=== PATIENT | male | born 1995 | race African-American/Black ===

== ENCOUNTER 2019-08-30 12:32 | Emergency (ER) | payer OTHER ==
[2019-08-30] MEDS ORDERED: IBUPROFEN 800 MG TABLET PO STA (12:47)
--- NOTE | 2019-08-30 12:49 | ED Physician Documentation ---
PD HPI LOWER EXT INJURY - Stated complaint Stated Complaint: R ANKLE INJ - Chief complaint Chief Complaint: Ext Problem - History obtained from History obtained from: Patient - History of Present Illness PD HPI LOW EXT INJURY LOCATION: Right (He fell down stairs in his [employer] just prior to arrival. Hit the right side of his face and injured his right ankle. He is able to walk and bear weight. No loss of consciousness or nausea. Headache is minor.) Review of Systems Constitutional: denies: Fever, Chills Cardiac: reports: Reviewed and negative Respiratory: reports: Reviewed and negative PD PAST MEDICAL HISTORY - Present Medications Home Medications: Ambulatory Orders Medication Instructions Recorded Confirmed Hydrocodone/Acetaminophen 1 - 2 each PO Q6H PRN #14 tablet 08/30/19 [Hydrocodon-Acetaminophen 5-325] - Allergies Allergies/Adverse Reactions: Allergies Allergy/AdvReac Type Severity Reaction Status Date / Time No Known Drug Allergies Allergy Verified 08/30/19 12:39 PD ED PE NORMAL - Vitals Vital signs reviewed: Yes - General General: Alert and oriented X 3, No acute distress - HEENT HEENT: PERRL, EOMI, Other (He is some early bruising and swelling on the right side of the face in the periorbital area. Minimal tenderness over the zygoma. No evidence of entrapment or diplopia.) - Neck Neck: Supple, no meningeal sign, No bony TTP - Back Back: No spinal TTP - Extremities Extremities: Other (Quite tender and swollen over the lateral malleolus of the right ankle full, no proximal fibular or foot tenderness.) - Neuro Neuro: Alert and oriented X 3, Normal speech Results - Vitals Vitals: Vital Signs - 24 hr 08/30/19 12:36 Temperature 37.1 C Heart Rate 111 H Respiratory 20 Rate Blood Pressure 141/98 H O2 Saturation 97 Oxygen O2 Source Room air - Rads (name of study) R ankle XR Radiology: EMP read contemporaneously (queen B frx) CT head and Face Radiology: EMP read contemporaneously (non discplaced nasal frx, not clearly acute. (Not tender there). Mucosal thickening.) Procedures - Splint (location) rle Splint applied by: Tech Type of splint: Fiberglass, Posterior Other: Patient tolerated well, No complications, Neurovascular intact, Crutches provided Departure - Departure Disposition: Home, Self Care Clinical Impression: Ankle fracture, right Qualifiers: Encounter type: initial encounter Fracture type: closed Qualified Code(s): S82.891A - Other fracture of right lower leg, initial encounter for closed fracture Facial contusion Qualifiers: Encounter type: initial encounter Qualified Code(s): S00.83XA - Contusion of other part of head, initial encounter Condition: Good Record reviewed to determine appropriate education?: Yes Instructions: ED Fx Ankle Lateral Malleolus, ED Head Injury Closed Prescriptions: Hydrocodone/Acetaminophen [Hydrocodon-Acetaminophen 5-325] 1 - 2 each PO Q6H PRN #14 tablet PRN Reason: pain Comments: Do not remove the splint, do not bear weight on the right ankle [place]. You should follow-up with them[facility], they will discuss with you whether they think surgery is appropriate or not. Either way follow their instructions. Forms: Activity restrictions
--- NOTE | 2019-08-30 13:25 | CT Report ---
Reason: head/face inj Procedure Date: 08/30/2019 Accession Number: [id number] / [id number] Procedure: CT - HEAD WO CPT Code: Final Report FULL RESULT: EXAM: CT HEAD EXAM DATE: 08/30/2019 01:05 PM. CLINICAL HISTORY: Head/face inj. fall. Head/facial injury. COMPARISON: None. TECHNIQUE: Multiaxial CT images were obtained from the foramen magnum to the vertex. Reformats: Sagittal and coronal. IV contrast: None. In accordance with CT protocol optimization, one or more of the following dose reduction techniques were utilized for this exam: automated exposure control, adjustment of mA and/or KV based on patient size, or use of iterative reconstructive technique. FINDINGS: Parenchyma: No intraparenchymal hemorrhage. No evidence of mass, midline shift, or CT findings of infarction. Riley-white differentiation is distinct. Extraaxial Spaces: Normal for age. No subdural or epidural collections identified. Ventricles: Normal in size and position. Sinuses and Orbits: Moderate opacification of multiple bilateral ethmoid air cells, left greater than right with mild soft tissue thickening within the sphenoid sinuses and the frontal sinuses. No winston fluid within the visualized sinuses. The visualized orbits and mastoids are unremarkable. Bones: No evidence of fracture or calvarial defect. Other: None. IMPRESSION: 1. No definite intracranial abnormality. 2. Bilateral paranasal sinus soft tissue thickening, greatest within the ethmoid sinuses. No fluid levels within the visualized sinuses. RADIA
--- NOTE | 2019-08-30 13:25 | CT Report ---
Reason: head/face inj Procedure Date: 08/30/2019 Accession Number: [id number] / [id number] Procedure: CT - MAXILLOFACIAL WO CPT Code: Final Report FULL RESULT: EXAM: CT MAXILLOFACIAL WITHOUT CONTRAST EXAM DATE: 08/30/2019 01:05 PM. CLINICAL HISTORY: Head/face inj. Swelling. COMPARISONS: None. TECHNIQUE: Thin-section axial images were acquired of the face without contrast. Post-processing: Coronal and sagittal reformats. Other: None. In accordance with CT protocol optimization, one or more of the following dose reduction techniques were utilized for this exam: automated exposure control, adjustment of mA and/or KV based on patient size, or use of iterative reconstructive technique. FINDINGS: Soft Tissue: No discrete collection visualized. Mild facial soft tissue swelling noted. Orbits: Symmetric and unremarkable. Bones: Nondisplaced appearing nasal fracture appears to be present. No other facial fracture identified. Temporomandibular Joints: The temporomandibular joints are symmetric and normally located. Sinuses: Mild frontal mucus/mucosal thickening, most notably on the left. Mild sphenoid and maxillary sinus mucosal thickening bilaterally. Scattered moderate opacity throughout the ethmoids and mucosal thickening. Patent ostiomeatal complex on the right and partially opacified on the left. Other: None. IMPRESSION: 1. Age-indeterminate nondisplaced appearing nasal fracture. Mild facial soft tissue swelling. Correlate with clinical assessment. No other facial fracture or TMJ dislocation identified. 2. Mild to moderate appearing paranasal sinus disease with mucosal thickening and mucus that is most prominent within the ethmoids. RADIA
--- NOTE | 2019-08-30 13:28 | XRAY Report ---
Reason: ankle inj Procedure Date: 08/30/2019 Accession Number: [id number] / [id number] Procedure: XR - Ankle 3 View RT CPT Code: Final Report FULL RESULT: EXAM: RIGHT ANKLE RADIOGRAPHY EXAM DATE: 08/30/2019 12:59 PM. CLINICAL HISTORY: Right ankle injury. Fell down stairs this morning. COMPARISON: None. TECHNIQUE: 3 views. FINDINGS: Bones: Oblique distal fibula fracture extending to the level of the tibial plafond, with minimal dorsolateral displacement of the distal fracture fragment. Joints: Normal alignment. The ankle mortise is symmetric. A small tibiotalar joint effusion is present. Soft Tissues: Anterolateral soft tissue swelling. IMPRESSION: Minimally displaced Root type B distal fibula fracture. RADIA
[2019-08-30 13:44] VITALS: BP 143/86
== END 2019-08-30 13:45 | disposition home or self-care (01) ==
LOC: ED 12:32
DX: S82.831A Other fracture of upper and lower end of right fibula, initial encounter for closed fracture (principal); S00.11XA Contusion of right eyelid and periocular area, initial encounter; W10.9XXA Fall (on) (from) unspecified stairs and steps, initial encounter; Y92.133 Barracks on military base as the place of occurrence of the external cause
CPT/HCPCS: 29515; 70450; 70486; 73610; 99284; A9270

== ENCOUNTER 2019-09-07 06:47 | Day surgery (SDC) | payer OTHER ==
[~2019-09-07 06:47] MED LIST: CEFAZOLIN SODIUM IN 0.9 % NACL 2 GM/100 ML BAG IV ONE
[2019-09-07] MEDS ORDERED: LACTATED RINGERS 1,000 ML IV ONE (07:04)
[2019-09-07] MEDS ORDERED: BUPIVACAINE 0.25% PF 30 ML VIAL ONE (07:07)
--- NOTE | 2019-09-07 07:21 | ANESTHESIA ---
Pre-Anesthesia VS, & Labs - Diagnosis Right unstable ankle fracture - Procedure Right ankle ORIF Vital Signs: Temp Pulse Resp BP Pulse Ox 36.7 C 77 19 135/86 H 97 09/07/19 06:53 09/07/19 06:53 09/07/19 06:53 09/07/19 06:53 09/07/19 06:53 Height 5 ft 11 in Weight (kg) 68.04 kg Body Mass Index 20.9 - NPO >8 hours Home Medications and Allergies Home Medications: Ambulatory Orders Acetaminophen [Tylenol] 650 mg PO Q6H PRN 09/06/19 Acetaminophen [Tylenol] 650 mg PO Q6H PRN 09/06/19 Allergies/Adverse Reactions: Allergies Allergy/AdvReac Type Severity Reaction Status Date / Time No Known Drug Allergies Allergy Verified 09/06/19 10:40 Anes History & Medical History - Anesthetic History Anesthesia Complications: reports: No previous complications Family history of Anesthesia Complications: Denies Family history of Malignant Hyperthermia: Denies - Medical History Cardiovascular: reports: None Pulmonary: reports: None Gastrointestinal: reports: None Urinary: reports: None Neuro: reports: None Musculoskeletal: reports: Other Endocrine/Autoimmune: reports: None Blood Disorders: reports: None Skin: reports: None Smoking Status: Never smoker Psychosocial: reports: No issues indicated Exam General: Alert, Oriented x3, Cooperative, No acute distress Dental: WNL Mouth Openin Fingerbreadth Neck Mobility: Normal Mallampati classification: I Thyromental Distance: greater than 6 cm Respiratory: Lungs clear Cardiovascular: Regular rate Extremities: No clubbing Mental/Cognitive Status: Alert/Oriented X3 Cognitive Status: Within normal limits Plan Anesthesia Type: General, Sciatic Nerve Block (right) Regional Block: Per Surgeon's request for Post Op pain control Consent for Procedure(s) Verified and Reviewed: Yes Code Status: Attempt Resuscitation ASA classification: 1-Healthy patient Is this case an emergency?: No
[2019-09-07] MEDS ORDERED: BUPIVACAINE 0.25% PF 30 ML VIAL SUBQ ONE (08:33)
[2019-09-07] MEDS ORDERED: ONDANSETRON 4 MG/2 ML VIAL IVP PRN (10:17)
[2019-09-07] MEDS ORDERED: oxyCODONE 5 MG TABLET PO PRN (10:17)
--- NOTE | 2019-09-07 10:37 | XRAY Report ---
Reason: RIGHT ANKLE IMPLANT PLACEMENT Procedure Date: 09/07/2019 Accession Number: [id number] / [id number] Procedure: FL - OR C-Arm Procedure CPT Code: Final Report FULL RESULT: EXAM: FLUOROSCOPIC GUIDANCE EXAM DATE: 09/07/2019 10:13 AM. CLINICAL HISTORY: RIGHT ANKLE IMPLANT PLACEMENT. COMPARISON: None. FINDINGS: IMPRESSION: Fluoroscopic guidance provided for right ankle ORIF. Please see operative report for complete detail. Total fluoroscopy time: 0.3 minutes. Number of images: 6. RADIA
--- NOTE | 2019-09-07 10:40 | OPERATIVE REPORT ---
Operative Report - General Procedure Date: 09/07/19 - Procedure Note Estimated Blood Loss (mL): 25 - Other Other Information/Narrative: Date of Procedure: 07 September 2019 Planned Procedure: Right ankle open reduction internal fixation Pre-op diagnosis: Right unstable ankle fracture, SER 4 equivalent Procedure performed: Right ankle open reduction internal fixation Post-op diagnosis: Right unstable ankle fracture, SER 4 equivalent Primary Surgeon: EDWARDO PYLE Secondary Surgeon: VASYL ANGELO Anesthesia: Regional plus LMA EBL: 25 ml Tourniquet: 86 minutes, 250 mmHg, right thigh. IMPLANTS: 1 Synthes 3.5 mm cortex screw placed in lag fashion 1 Synthes locking small frag set 6 hole plate 3 Synthes 3.5 mm cortex screws proximal plate 2 Synthes 4.0 mm cancellous screws distal plate COMPLICATIONS: None. INDICATIONS FOR SURGERY: 24] y/o M fell down the stairs approximately 1 week ago, sustaining an injury to his right ankle. He was seen at an outside ED where radiographs demonstrated a distal fibular fracture. He was placed in a splint and referred to orthopedics. In the orthopedics clinic a splint was taken down and gravity stress views were obtained, under gravity stress his medial clear space widening significantly to approximately 6-1/2 mm, consistent with a deltoid injury making this an SER 4 equivalent ankle fracture. His talus was noted to have translated approximately 2 mm relative to the distal tibia. Risks benefits and alternatives to surgical intervention were discussed with the patient, with concerns that nonanatomic reduction and cast management of this fracture could potentially lead to increased contact stresses at the tibiotalar joint possibly predisposing him to secondary early onset arthritis. The recommendation was made for open reduction internal fixation, with intraoperative syndesmotic stress and possible tight rope fixation should the syndesmosis proved to be incompetent. Risks discussed included bleeding, infection, prominent or symptomatic hardware, hardware failure, ankle stiffness, damage to surrounding nerves, blood vessels, tendons, further fracture, need for extensive rehabilitation, loss of reduction, malunion, nonunion, allergic reaction to anesthetics or other medications, DVT and pulmonary embolus, heart attack, stroke, and . All questions were answered, written consent was signed. PROCEDURE: The patient was met in the Preoperative Holding Area, at which time preoperative paperwork was confirmed. The right lower extremity was signed. The patient was turned over to anesthesia who performed a regional sciatic block. The patient was then brought to the Main Operating Room, placed supine on the operative table. Preoperative antibiotics were administered in the form of 2g of intravenous Ancef. General anesthesia was induced. The operative hip was bumped using 2 blankets to achieve neutral rotation, and the leg was elevated on bone foam. A non-sterile tourniquet was placed high on the right thigh. The patient was then prepped and draped in normal sterile fashion. A final timeout was conducted again to confirm correct patient, correct extremity and correct procedure, and confirm that antibiotics had been administered within 30 minutes of incision time. After this was confirmed, the operative extremity was exsanguinated with an Esmarch bandage, tourniquet inflated to 250mmHg. The distal fibula was marked out on the skin, and a linear incision in line with the fibular shaft proceeding distally to the level of the fibular tip was marked out. This incision was made sharply using a 10 blade through the skin, and then deepened using a combination of sharp and blunt dissection, taking care to look for the SPN proximally and branches of the sural nerve distally. None were encountered. The fascia was elevated and incised, raising anterior and posterior flaps over the surface of the fibula. The fracture site was identified, and open to allow cleaning. Approximately 2 to 3 mm of periosteum were sharply peeled back from the fracture site using a 15 blade. Fracture hematoma was removed using a combination of curette, rongeur, dental pick and irrigation. Once the fracture is been adequately debrided, longitudinal and rotational traction, and [id number] clamps were used to reduce the fibular fracture. Once satisfied with the reduction, second clamp was placed in the first clamp adjusted. A 3.5 mm cortex screw was placed in a "lag by technique" fashion across the fracture site, with good purchase and compression. Once the lag screw had been placed, 1 of the clamps was removed, and a 6-hole plate was contoured and positioned along the lateral fibula. Radiographs were used to confirm appropriate length and positioning. Once satisfied with the position of the plate, we began with plate fixation distally using a 4.0 mm cancellus screw. This was followed by 2 3.5 mm cortex screws in the proximal proximal plate. A second 4.0 millimeter cancellus screw was placed in the distal-most hole. Radiographs confirmed appropriate screw length. Length alignment and rotation have been restored. A [id number] clamp was then used to grasp the lateral plate. An unstressed mortise view of the ankle was obtained using C arm, followed by a stress view with lateral-directed force on the plate. There was no syndesmotic widening and the medial clear space remained symmetric/congruent. The clamps were then put down the proximal tibia was grasped and an external rotation stress was applied. Again the talus stayed well reduced within the mortise, with no syndesmotic widening or increased medial clear space. A final 3.5 mm cortex screw was placed in the proximal fragment, final x-rays were taken, and then the wound was irrigated copiously. The fascia was closed using 0 Vicryl in interrupted [id number] fashion. The wound was again irrigated and the subcutaneous tissue was closed using 2-0 Vicryl interrupted. The skin was closed using mis. Xeroform was applied followed by 4 x 4's sterile web roll. The tourniquet was let down and a postoperative L and U plaster splint in neutral dorsiflexion was applied and secured with an Adam wrap. After all excess staff cleared the room, anesthesia was reversed, and the patient was recovered in the operating room. There were no complications he tolerated the procedure well. POSTOPERATIVE PLAN: 1. The patient will be discharged from [facility] when discharge criteria are met. 2. The patient will be nonweightbearing in a splint on the right lower extremity. They will follow up for splint removal, wound check, possible suture removal, and transition to a short leg NWB cast or NWB cam boot. 3. At 6 weeks postoperatively, they will start formal physical therapy and be transitioned to an ankle support orthosis. 4. Expect to start return to run at approximately 4 months postoperatively and return to full activity at 4-5 months postoperatively. 5. DVT prophylaxis will be with aspirin 325mg daily for 4 weeks postoperatively. 6. Discharge precautions were provided to the patient
[2019-09-07 12:24] VITALS: BP 122/75
== END 2019-09-07 06:48 | disposition home or self-care (01) ==
LOC: SDS 06:47
PROVIDERS: ATTEND Orthopaedic Surgery
DX: S82.831A Other fracture of upper and lower end of right fibula, initial encounter for closed fracture (principal); W10.9XXA Fall (on) (from) unspecified stairs and steps, initial encounter